=== PATIENT | male | born 1945 | race Caucasian/White ===

== ENCOUNTER 2017-12-15 09:43 | Emergency (ER) | payer MEDICARE, OTHER ==
[2017-12-15] MEDS: GLYCERIN (ADULT) SUPP PR (11:12)
== END 2017-12-15 11:25 | disposition home or self-care (01) ==
LOC: FTE 09:43
DX: K64.4 Residual hemorrhoidal skin tags (principal); K59.00 Constipation, unspecified; E11.9 Type 2 diabetes mellitus without complications; Z79.4 Long term (current) use of insulin
CPT/HCPCS: 99283